=== PATIENT | male | born 1975 | race Native Hawaiian/Other Pacific Islander ===

== ENCOUNTER 2021-02-22 13:59 | Outpatient (CLI) | payer BC, OTHER | END 2021-02-22 19:04 | disposition home or self-care (01) | LOC: LAB 13:59 | PROVIDERS: ATTEND Nurse Practitioner | DX: U07.1 COVID-19 (principal); R68.89 Other general symptoms and signs | CPT/HCPCS: 87635; G2023; U0003 ==